=== PATIENT | female | born 1945 | race Caucasian/White ===

== ENCOUNTER 2023-12-23 16:22 | Emergency (ER) | payer MEDICARE, SELFPAY ==
[2023-12-23 16:30] VITALS: BP 190/86; PULSE 70; RESP 18; TEMP 36.8; O2SAT 100
--- NOTE | 2023-12-23 17:20 | ED.GENADULT ---
HPI - General Adult General Chief complaint: Wound/Laceration Stated complaint: head laceration Time Seen by Provider: 12/23/23 17:03 Source: patient Mode of arrival: ambulatory Limitations: no limitations History of Present Illness HPI narrative: This is a 78-year-old female who presents to the ED for chief complaint of head injury that occurred just prior to arrival. Patient states that she was walking towards the [facility] when she accidentally hit her head on the lift gate that was up. Reports that it caused a laceration to the top of her scalp. She states that this caused her to stagger backwards and fall. She was able to control the fall somewhat. Denies head injury on the concrete. endorses minor left elbow pain but denies swelling or range of motion. Denies numbness, weakness, speech change, vision change, LOC, neck pain, back pain or any further sites of injury Related Data Allergies Allergy/AdvReac Type Severity Reaction Status Date / Time meloxicam Allergy Unknown THROAT Verified 09/07/18 18:41 MARKO Review of Systems Review of Systems: All systems as dictated in HPI Exam Narrative: GENERAL: Well-appearing, well-nourished, and in no acute distress. HEAD: Normocephalic, atraumatic. EYES: PERRLA and EOMI. ENT: Nares clear, no rhinorrhea or epistaxis. Mucous membranes moist. Oropharynx without tonsillar hypertrophy exudate or other lesions. NECK: Supple. No adenopathy or masses. CHEST: No respiratory distress. Clear to auscultation. No wheezes rales or rhonchi HEART: Regular rate and rhythm. No murmur heard. Normal peripheral pulses. ABDOMEN: Soft, nontender, nondistended, normal active bowel sounds. MSK: Normal range of motion. No edema. No midline tenderness throughout the spine. SKIN: 2 cm laceration to the mid frontal scalp. no active bleeding. NEURO: Alert and oriented x4. No focal deficits. PSYCH: Normal mood and affect. Course Vital Signs Vital signs: Vital Signs Temperature 98.3 F 12/23/23 16:30 Pulse Rate 70 12/23/23 16:30 Respiratory Rate 18 12/23/23 16:30 Blood Pressure 190/86 H 12/23/23 16:30 Pulse Oximetry 100 12/23/23 16:30 Oxygen Delivery Room Air 12/23/23 16:30 Temperature 98.3 F 12/23/23 16:30 Pulse Rate 82 12/23/23 18:24 Respiratory Rate 18 12/23/23 18:24 Blood Pressure 156/120 H 12/23/23 18:24 Pulse Oximetry 98 12/23/23 18:24 Oxygen Delivery Room Air 12/23/23 16:30 Procedures Laceration Laceration 1: Date: 12/23/23 Time: 18:13 Site: scalp Size (cm): 2 Description: linear Depth: simple, single layer Local Anesthetic: other anesthetic ( Let gel) Amount of anesthesia used (mL): 2 Pre-repair: wound explored and irrigated extensively ====== Skin Level ====== Skin layer closed with: scar (3) Technique: simple, interrupted ====== Subcutaneous Layer ====== ====== Muscle Layer ====== ====== Tendon Layer ====== Medical Decision Making MDM Narrative Medical decision making narrative: this is a 78-year-old female who presents to the ED with chief complaint of head injury that occurred earlier today. vitals show initial elevated blood pressure, consistent with pain. Exam shows 2 cm laceration to the frontal scalp. No neurologic deficit. No LOC. discussed reassuring exam findings with the patient and family. Offer CT scan for further investigation of the head injury but they would prefer to forego this. The patient's wound was well cleansed and irrigated here. Did let gel was applied and then 3 scar were placed to close the wound. Wound care instructions given. Pt will be discharged in stable condition. Return precautions given and supportive measures discussed. Pt is understanding and agreeable with plan for discharge and follow-up with PCP. Vital Signs Vital Signs: Vital Signs Temperature 98.3 F 12/23/23
[2023-12-23] MEDS: LIDOCAINE, EPINEPHRINE, TETRACAINE VISCOUS SOLN 3 ML TOPICAL (17:32)
[2023-12-23 18:24] VITALS: BP 156/120; PULSE 82; RESP 18; O2SAT 98
== END 2023-12-23 18:26 | disposition home or self-care (01) ==
PROVIDERS: Emergency Provider Physician Assistant; PCP Internal Medicine Geriatric Medicine
DX: S01.01XA Laceration without foreign body of scalp, initial encounter (principal); W22.8XXA Striking against or struck by other objects, initial encounter
CPT/HCPCS: 12001; 99282